=== PATIENT | male | born 1985 | race African-American/Black ===

== ENCOUNTER 2016-11-25 23:30 | Observation (INO) | payer BC ==
[~2016-11-25] VITALS: Ht 188 cm; Wt 93.0 kg
[2016-11-25 23:41] VITALS: BP 127/75; PULSE 60; RESP 16; O2SAT 100
[2016-11-25 23:50] VITALS: RESP 16; O2SAT 100
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
[2016-11-26 01:00] VITALS: BP 129/71; PULSE 64; RESP 16; O2SAT 100
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
[2016-11-26] MEDS ORDERED: SODIUM CHLORIDE 0.9% FLUSH 10 ML FLUSH IVF PRN (02:15)
[2016-11-26 02:21] LABS: AUTOMATED NEUTROPHIL # 5.5 TH/MM3 (1.8-7.7); BASOPHIL % 0.5 % (0.0-2.0); EOSINOPHIL % 0.4 % (0.0-4.0); HEMATOCRIT 36.1 % (39.0-51.0); HEMO FLAGS DIFF FINAL; LYMPH % 20.9 % (9.0-44.0); LYMPHOCYTE # 1.6 TH/MM3 (1.0-4.8); MEAN CELL VOLUME 93.7 FL (80.0-100.0); MEAN CORPUSCULAR HEMOGLOBIN 31.7 PG (27.0-34.0); MEAN CORPUSCULAR HGB CONC 33.8 % (32.0-36.0); MONO % 7.6 % (0.0-8.0); NEUT % 70.6 % (16.0-70.0); PLATELET COUNT 163 TH/MM3 (150-450); RED BLOOD COUNT 3.85 MIL/MM3 (4.50-5.90); RED CELL DISTRIBUTION WIDTH 13.5 % (11.6-17.2); WHITE BLOOD COUNT 7.8 TH/MM3 (4.0-11.0)
[2016-11-26 02:28] LABS: APTT (PATIENT) 23.8 SEC (24.3-30.1); INTERNATIONAL NORMALIZED RATIO 1.1 RATIO; PROTHROMBIN TIME - PATIENT 12.1 SEC (9.8-11.6)
[2016-11-26 02:35] LABS: ALT (GPT) 30 U/L (12-78); ANION GAP 6 MEQ/L (5-15); AST (GOT) 24 U/L (15-37); BICARBONATE 24.6 MEQ/L (21.0-32.0); BLOOD UREA NITROGEN 19 MG/DL (7-18); CHLORIDE 109 MEQ/L (98-107); GLOMERULAR FILTRATION RATE 111 ML/MIN (>89); POTASSIUM 3.8 MEQ/L (3.5-5.1); SODIUM (NA) 140 MEQ/L (136-145)
[2016-11-26 02:37] LABS: ALKALINE PHOSPHATASE 45 U/L (45-117); TOTAL BILIRUBIN ADULT 0.2 MG/DL (0.2-1.0)
[2016-11-26] MEDS ORDERED: SODIUM CHLOR 0.9% 1000 ML INJ 1,000 ML IV SCH (02:41)
[2016-11-26] MEDS ORDERED: SENNOSIDES 8.6 MG TAB PO PRN (02:45)
[2016-11-26] MEDS ORDERED: ACETAMINOPHEN 325 MG TAB PO PRN (02:45)
[2016-11-26] MEDS ORDERED: ONDANSETRON HCL 4 MG/2 ML VIAL IVP PRN (02:45)
[2016-11-26] MEDS ORDERED: SODIUM CHLORIDE 0.9% FLUSH 10 ML FLUSH IV FLUSH PRN (02:45)
[2016-11-26] MEDS ORDERED: BISACODYL 10 MG SUPP RECTAL PRN (02:45)
[2016-11-26] MEDS ORDERED: LACTULOSE SYRUP 20 GM/30 ML CUP PO PRN (02:45)
[2016-11-26] MEDS ORDERED: MAGNESIUM HYDROXIDE SUSP 30 ML CUP PO PRN (02:45)
[2016-11-26 03:00] VITALS: BP 122/69; PULSE 59; RESP 16; O2SAT 99
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
[2016-11-26 07:17] VITALS: BP 127/70; PULSE 50; RESP 16; TEMP 98.3; O2SAT 99
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
[2016-11-26] MEDS ORDERED: DOCUSATE SODIUM 50 MG/SENNA 8.6 MG TAB PO SCH (09:00)
[2016-11-26] MEDS ORDERED: SODIUM CHLORIDE 0.9% FLUSH 10 ML FLUSH IV FLUSH SCH (09:00)
[2016-11-26 11:15] VITALS: BP 125/68; PULSE 55; RESP 20; TEMP 98; O2SAT 66
[2016-11-26 11:19] LABS: HEMATOCRIT 36.6 % (39.0-51.0); REVIEW FLAG FINAL
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
[2016-11-26 15:27] VITALS: BP 124/77; PULSE 60; RESP 18; TEMP 97.9; O2SAT 100
--- NOTE | 2016-11-26 15:36 | RADRPT ---
EXAM DATE/TIME: 11/26/2016 15:29 [facility] COMPARISON: CT BRAIN W/O CONTRAST, November 26, 2016, 1:16. INDICATIONS : Evaluate brain contusion from yesterday. RADIATION DOSE: 42.27 CTDIvol (mGy) MEDICAL HISTORY : None SURGICAL HISTORY : None. ENCOUNTER: Initial ACUITY: 1 day PAIN SCALE: 4/10 LOCATION: cranial TECHNIQUE: Multiple contiguous axial images were obtained of the head. Using automated exposure control and adj ustment of the mA and/or kV according to patient size, radiation dose was kept as low as reasonably a chievable to obtain optimal diagnostic quality images. DICOM format image data is available electro nically for review and comparison. FINDINGS: CEREBRUM: The ventricles are normal for age. Small focal hyperdensity in the right frontal lobe cannot be appr eciated in the current study. No evidence of midline shift, mass lesion, hemorrhage or acute infarcti on. No extra-axial fluid collections are seen. POSTERIOR FOSSA: The cerebellum and brainstem are intact. The 4th ventricle is midline. The cerebellopontine angle i s unremarkable. EXTRACRANIAL: The visualized portion of the orbits is intact. SKULL: The calvaria is intact. No evidence of skull fracture. CONCLUSION: Suspected right frontal lobe contusion is not apparent on the current study. No significant abnormality noted. Juan Alanis MD on November 26, 2016 at 15:33 Board Certified Radiologist. This report was verified electronically.
== END 2016-11-26 16:55 | disposition home or self-care (01) ==
LOC: NEPC 23:30 → NEDA 11-26 02:31 → NEPFCDU 11-26 04:04
PROVIDERS: ADMIT Internal Medicine; ATTEND Internal Medicine
DX: S06.2X9A Diffuse traumatic brain injury with loss of consciousness of unspecified duration, initial encounter (principal); D64.9 Anemia, unspecified; W50.0XXA Accidental hit or strike by another person, initial encounter; Y93.75 Activity, martial arts
CPT/HCPCS: 70450; 80053; 85014; 85018; 85025; 85610; 85730; 96360; 99285; G0378; J7030